=== PATIENT | male | born 1995 | race African-American/Black ===

== ENCOUNTER 2022-07-05 19:53 | Emergency (ER) | payer MEDICAID, OTHER ==
[~2022-07-05] VITALS: Ht 172.7 cm; Wt 106.0 kg
[2022-07-05] MEDS ORDERED: AMOX-277 PO (21:09)
[2022-07-05 21:19] VITALS: BP 132/88
== END 2022-07-05 21:24 | disposition home or self-care (01) ==
LOC: ER 19:53
DX: T16.1XXA Foreign body in right ear, initial encounter (principal); X58.XXXA Exposure to other specified factors, initial encounter; Y93.89 Activity, other specified; Y92.89 Other specified places as the place of occurrence of the external cause; Y99.8 Other external cause status